=== PATIENT | female | born 1960 | race Caucasian/White ===

== ENCOUNTER 2016-06-16 10:05 | Emergency (ER) | payer OTHER ==
[~2016-06-16] VITALS: Ht 165.1 cm; Wt 50.9 kg
[~2016-06-16 10:05] MED LIST: DESV25TA; FENT100D T-DERMAL; LAMI25TA3 PO; SOMA250T PO; TRAZ50TA4 PO; ZOVI800T13 PO
[2016-06-16 10:17] VITALS: BP 126/54; PULSE 82; RESP 18; TEMP 97.7; O2SAT 100
[2016-06-16 10:20] VITALS: BP 114/66; PULSE 79; RESP 18; O2SAT 100
[2016-06-16] MEDS ORDERED: TRAZ100T4 PO (10:23)
[2016-06-16] MEDS ORDERED: CELE10TA PO (10:23)
[2016-06-16] MEDS ORDERED: LAMO25 PO (10:23)
[2016-06-16] MEDS ORDERED: SODIUM CHLOR 0.9% 1000 ML INJ 1,000 ML IV SCH (10:29)
[2016-06-16] MEDS ORDERED: diphenhydrAMINE HCL 50 MG/ML VIAL IV PUSH ONE (10:30)
[2016-06-16] MEDS ORDERED: SODIUM CHLORIDE 0.9% FLUSH 5 ML FLUSH IVF PRN (10:30)
[2016-06-16] MEDS ORDERED: FAMOTIDINE 20 MG/2 ML VIAL IV PUSH SCH (10:30)
--- NOTE | 2016-06-16 10:30 | PD ---
HPI Chief Complaint: Allergic/Adverse Reaction Time Seen by Provider: 10:30 Travel History International Travel<30 days: No Contact w/Intl Traveler<30days: No Traveled to known affect area: No History of Present Illness HPI 55 year old female presents to the ED for evaluation of possible allergic reaction. Pt woke up this morning with a sore throat and took amoxicillin that was in her medicine cabinet. She has a known allergy to PCN, but did not think amoxicillin was related. Shortly after taking the medication, she began to feel hot. Her lips began to swell and she felt anxious. [facility] was called. She was given benadryl, epi, and solumedrol en route. Pt states right now she feels better. She denies any chest pain or tightness. No difficulty swallowing. States lip tightness has reduced. She has no other symptoms to report at this time. PFSH Past Medical History Bipolar Disorder: Yes Depression: Yes Past Surgical History Other Surgery: Yes (BREAST AUGMENTATION) Social History Alcohol Use: No Tobacco Use: Yes Substance Use: No Allergies-Medications (Allergen,Severity, Reaction): Coded Allergies: Penicillin (Verified Allergy, Unknown, 06/16/16) Reported Meds & Prescriptions Reported Meds & Active Scripts Active Epipen 2-Jered Inj (Epinephrine) 0.3 Mg/0.3 Ml Pfpen 0.3 Mg IM ONCE PRN Reported Celexa (Citalopram Hydrobromide) 10 Mg Tab Unknown Dose PO DAILY Trazodone (Trazodone HCl) 100 Mg Tab 200 Mg PO HS Lamictal (Lamotrigine) 25 Mg Tab 25 Mg PO DAILY Review of Systems Except as stated in HPI: all other systems reviewed are Neg Physical Exam Narrative GENERAL: Well-nourished female patient, in no acute distress SKIN: Warm and dry. HEAD: Atraumatic. Normocephalic. Mild swelling of the lips. EYES: Pupils equal and round. No scleral icterus. No injection or drainage. ENT: Mucosa pink and moist. No erythema or exudates. No uvular edema. No uvular , palatal, or tonsillar deviation. Airway patent. Nasal turbinates appear normal without nasal blood, purulent drainage or septal hematoma. NECK: Trachea midline. No JVD. No stridor CARDIOVASCULAR: Elevated rate and rhythm. No murmur appreciated. RESPIRATORY: No accessory muscle use. Clear to auscultation. Breath sounds equal bilaterally. GASTROINTESTINAL: Abdomen soft, non-tender, nondistended. Hepatic and splenic margins not palpable. MUSCULOSKELETAL: No obvious deformities. No clubbing. No cyanosis. No edema. NEUROLOGICAL: Awake and alert. No obvious cranial nerve deficits. Motor grossly within normal limits. Normal speech. PSYCHIATRIC: Appropriate mood and affect; insight and judgment normal. Data Data Last Documented VS Vital Signs Date Time Temp Pulse Resp B/P Pulse Ox O2 Delivery O2 Flow Rate FiO2 06/16/16 12:15 66 16 93/53 100 Nasal Cannula 2 06/16/16 10:17 97.7 Orders Diphenhydramine Inj (Benadryl Inj) (06/16/16 10:30) Famotidine Inj (Pepcid Inj) (06/16/16 10:30) Iv Access Insert/Monitor (06/16/16 10:29) Ecg Monitoring (06/16/16 10:29) Sodium Chlor 0.9% 1000 Ml Inj (Ns 1000 M (06/16/16 10:29) Sodium Chloride 0.9% Flush (Ns Flush) (06/16/16 10:30) Oximetry (06/16/16 10:29) MDM Medical Decision Making Medical Screen Exam Complete: Yes Emergency Medical Condition: Yes Medical Record Reviewed: Yes Differential Diagnosis Anaphylaxis versus medication adverse side effect versus angioedema Narrative Course 55-year-old female presents to emergency department after taking amoxicillin when she has a penicillin allergy. Patient appears now at this time without distress. She is already be given Benadryl, epinephrine, and Solu-Medrol by [facility]. I will add Pepcid. I discussed the patient's attending physician Dr. Barakat. Patient will be observed for 3 hours and then discharged. Scripts Epinephrine Inj (Epipen 2-Jered Inj)0.3 Mg/0.3 Ml Pfpen0.3 Mg IM ONCE PRN ( ALLERGIC REACTION) #1 PACK Ref 0 Prov:Jasmine Barakat MD 06/16/16 Condition: Stable Cleo Craig TOMMY Jun 16, 2016 10:30
[2016-06-16 11:15] VITALS: BP 110/59; PULSE 60; RESP 16; O2SAT 98
[2016-06-16] MEDS ORDERED: EPIP0.3I IM (11:59)
--- NOTE | 2016-06-16 11:59 | PD ---
Data Data Last Documented VS Vital Signs Date Time Temp Pulse Resp B/P Pulse Ox O2 Delivery O2 Flow Rate FiO2 06/16/16 11:15 60 16 110/59 98 Nasal Cannula 2 06/16/16 10:17 97.7 Orders Diphenhydramine Inj (Benadryl Inj) (06/16/16 10:30) Famotidine Inj (Pepcid Inj) (06/16/16 10:30) Iv Access Insert/Monitor (06/16/16 10:29) Ecg Monitoring (06/16/16 10:29) Sodium Chlor 0.9% 1000 Ml Inj (Ns 1000 M (06/16/16 10:29) Sodium Chloride 0.9% Flush (Ns Flush) (06/16/16 10:30) Oximetry (06/16/16 10:29) MDM Supervised Visit with DAVID: Yes Narrative Course I, Dr. Barakat, have reviewed the advance practice practioner's documentation and am in agreement, met with the patient face to face, made the diagnosis, and the medical decision making was done by me. *My assessment and Findings: 55-year-old female with history of penicillin allergy here with complaint of allergic reaction. Patient woke up and took some amoxicillin for a sore throat that was left over from a other family members prescription. Shortly after beginning to feel hot, swelling lip, rash. She called EMS who administered Benadryl, Solu-Medrol, epinephrine. Patient feels improved. On exam she has mild residual erythema around the face. No wheezing. No posterior pharyngeal swelling or tongue, lip swelling. Exam is consistent with penicillin anaphylaxis. Will observe patient here for several hours for symptom resolution and if stable discharged home. Diagnosis Primary Impression: Anaphylaxis Qualified Code: T78.2XXA - Anaphylaxis, initial encounter Additional Impression: Penicillin allergy Referrals: Primary Care Physician as needed Additional Instruction: Benadryl as needed for itching, swelling. EpiPen as needed for anaphylaxis as instructed. Return to the ER for the warning signs discussed. Med/Other Pt SpecificInfo: Prescription(s) given Scripts Epinephrine Inj (Epipen 2-Jered Inj)0.3 Mg/0.3 Ml Pfpen0.3 Mg IM ONCE PRN ( ALLERGIC REACTION) #1 PACK Ref 0 Prov:Jasmine Barakat MD 06/16/16 Disposition: 01 DISCHARGE HOME Condition: Stable Jasmine Barakat MD Jun 16, 2016 11:59
[2016-06-16 12:15] VITALS: BP 93/53; PULSE 66; RESP 16; O2SAT 100; O2SAT 98
[2016-06-16 13:15] VITALS: BP 107/62; PULSE 68; RESP 16; O2SAT 100
== END 2016-06-16 14:44 | disposition home or self-care (01) ==
LOC: NEPA 10:05
DX: F31.9 Bipolar disorder, unspecified (principal); F32.9 Major depressive disorder, single episode, unspecified; T88.6XXA Anaphylactic reaction due to adverse effect of correct drug or medicament properly administered, initial encounter; T36.0X5A Adverse effect of penicillins, initial encounter
CPT/HCPCS: 96361; 96374; 99284; J7030